=== PATIENT | female | born 1970 | race Two or more races ===

== ENCOUNTER 2016-11-18 11:50 | Emergency (ER) | payer SELFPAY ==
[~2016-11-18] VITALS: Ht 160 cm; Wt 81.6 kg
[~2016-11-18 11:50] MED LIST: AMLO5TAB2 PO; ASPI-252 PO; CLON0.5T3 PO; HYDR25TA9 PO; LISI-334 PO; LISI1TAB7 PO; LOVA20TA2 PO; METO50TA2 PO; NITR0.4T SL; PARO30TA3 PO; TRAZ100T12 PO; VORT10TA PO; WARF5TAB7 PO
[2016-11-18 12:57] LABS: BASO % 0 % (0-3); EOS % 3 % (0-3); HEMATOCRIT 40.8 % (36.0-47.0); HEMOGLOBIN 13.9 g/dL (12.0-15.5); LYMPH # 2.4 x10^3/uL (1.0-4.8); LYMPH % 27 % (24-48); MEAN CORPUSCULAR HEMOGLOBIN 29 pg (25-35); MEAN CORPUSCULAR HGB CONC 34 g/dL (31-37); MEAN CORPUSCULAR VOLUME 84 fL (79-100); MONO % 7 % (0-9); NEUT % 63 % (31-73); PLATELET COUNT 272 x10^3/uL (140-400); RED BLOOD COUNT 4.87 x10^6/uL (3.50-5.40); RED CELL DISTRIBUTION WIDTH 13.7 % (11.5-14.5); WHITE BLOOD COUNT 9.1 x10^3/uL (4.0-11.0)
[2016-11-18] MEDS ORDERED: MECLIZINE HCL 12.5 MG TABLET. PO ONE (13:00)
[2016-11-18] MEDS ORDERED: PROCHLORPERAZINE 10 MG/2 ML VIAL. IV ONE (13:00)
[2016-11-18 13:08] LABS: INR 3.7 (0.8-1.1); PROTHROMBIN TIME PATIENT 34.1 SEC (11.7-14.0)
[2016-11-18 13:15] LABS: CALCIUM 9.9 mg/dL (8.5-10.1); CREATININE 0.7 mg/dL (0.6-1.0); GFR 89.7; POTASSIUM 3.5 mmol/L (3.5-5.1)
[2016-11-18 13:21] LABS: ALBUMIN 3.7 g/dL (3.4-5.0); MAGNESIUM 1.9 mg/dL (1.8-2.4); TOTAL BILIRUBIN 0.4 mg/dL (0.2-1.0); TOTAL PROTEIN 7.5 g/dL (6.4-8.2)
[2016-11-18 13:36] LABS: BILIRUBIN,URINE NEGATIVE (NEG); GLUCOSE,URINE NEGATIVE (NEG); NITRITE,URINE NEGATIVE (NEG); PROTEIN,URINE NEGATIVE (NEG-TRACE); UROBILINOGEN,URINE 0.2 mg/dL (0.2 mg/dL)
[2016-11-18 13:41] LABS: BARBITURATES NEG (NEG); BENZODIAZEPINES NEG (NEG); CANNABINOIDS NEG (NEG); COCAINE NEG (NEG); METHADONE NEG (NEG); OPIATES NEG (NEG); PHENCYCLIDINE NEG (NEG)
[2016-11-18 13:44] LABS: BACTERIA,URINE FEW /HPF (0-FEW); RBC,URINE 0 /HPF (0-2); SQUAMOUS EPITHELIAL CELL,UR FEW /LPF; WBC,URINE 0 /HPF (0-4)
--- NOTE | 2016-11-18 13:44 | RAD ---
CT of the head without contrast, 11/18/2016: History: Headache, dizziness Comparison is made to a study from 03/16/2016. There is cerebral atrophy. There is moderate unchanged encephalomalacia in the lateral right frontal lobe compatible with an old infarct. A small old infarct is present in the right parietal lobe. There is an unchanged moderate-sized lucency in the medial aspect of the left occipital lobe compatible with an old infarct there. Is no evidence of acute intracranial hemorrhage or mass effect. There is compensatory enlargement of the occipital horn of left lateral ventricle due to the adjacent infarct. The ventricles are otherwise unremarkable. There is no shift of the midline structures. IMPRESSION: 1. 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 2. No acute intracranial abnormality is detected. PQRS Compliance Statement: One or more of the following individualized dose reduction techniques were utilized for this examination: 1. Automated exposure control 2. Adjustment of the mA and/or kV according to patient size 3. Use of iterative reconstruction technique
[2016-11-18] MEDS ORDERED: MECL25TA3 PO (14:02)
[2016-11-18 14:04] VITALS: BP 115/76
--- NOTE | 2016-11-18 14:04 | PHYS DOC ---
Past Medical History Past Medical History: Anxiety, Depression, High Cholesterol, Heart Disease, Hypertension, Hypothyroid, Stroke, Other Additional Past Medical Histor: heart valve replacement on chronic AC Past Surgical History: , Tubal ligation, Other Additional Past Surgical Histo: heart valve replacement Alcohol Use: Rarely Drug Use: None Adult General Chief Complaint Chief Complaint: WEAKNESS/GENERALIZED HPI HPI Patient is a 46 year old female who presents with son for evaluation of generalized weakness, dizziness, and gradual onset headache starting today. She had nausea yesterday, all day, no emesis; nausea is currently gone. States her symptoms were gradual in onset today, starting with headache this morning. Dizziness is intermittent, inappropriate movement feeling. She denies focal weakness, numbness, tingling, vision changes, neck pain or manipulation, chest pain, dyspnea, palpitations, fever or chills, diarrhea. Review of Systems Review of Systems Constitutional: Denies fever or chills [] Eyes: Denies change in visual acuity, redness, or eye pain [] HENT: Denies nasal congestion or sore throat [] Respiratory: Denies cough or shortness of breath [] Cardiovascular: No additional information not addressed in HPI [] GI: Denies abdominal pain, vomiting, bloody stools or diarrhea [] : Denies dysuria or hematuria [] Musculoskeletal: Denies back pain or joint pain [] Integument: Denies rash or skin lesions [] Neurologic: Denies focal weakness or sensory changes [] Endocrine: Denies polyuria or polydipsia [] Current Medications Current Medications Current Medications Medications (Trade) Dose Ordered Sig/Yonas Start Time Stop Time Status Last Admin Dose Admin Meclizine HCl (Antivert) 12.5 mg 1X ONCE 11/18/16 13:00 11/18/16 13:01 DC 11/18/16 13:10 12.5 MG Prochlorperazine Edisylate (Compazine) 10 mg 1X ONCE 11/18/16 13:00 11/18/16 13:01 DC 11/18/16 13:10 10 MG Allergies Allergies Allergies Coded Allergies Type Severity Reaction Last Updated Verified Penicillins Allergy Intermediate Unknown 03/16/16 Yes chicken derived Allergy Intermediate Unknown 03/16/16 Yes Physical Exam Physical Exam Constitutional: Well developed, well nourished, no acute distress, non-toxic appearance. [] HENT: Normocephalic, atraumatic, bilateral external ears normal, oropharynx moist, no oral exudates, nose normal. [] Eyes: PERRLA, EOMI, conjunctiva normal, no discharge. [] Neck: Normal range of motion, supple. [] Cardiovascular:Heart rate regular rhythm [] Lungs & Thorax: Bilateral breath sounds clear to auscultation [] Abdomen: Bowel sounds normal, soft, no tenderness. [] Skin: Warm, dry, no erythema, no rash. [] Back: No tenderness, no CVA tenderness. [] Extremities: No tenderness, ROM intact, equal generalized weakness. [] Neurologic: Alert and oriented X 3, normal motor function, normal sensory function, no focal deficits noted, cranial nerves II through XII intact, no nystagmus, no past pointing. [] Psychologic: Affect normal, judgement normal, mood normal. [] Current Patient Data Vital Signs Vital Signs Date Time Temp Pulse Resp B/P (MAP) Pulse Ox O2 Delivery O2 Flow Rate FiO2 11/18/16 12:05 98.8 77 18 124/79 (94) 96 Room Air 98.8 Lab Values Laboratory Tests Test 11/18/16 12:10 11/18/16 13:20 White Blood Count 9.1 x10^3/uL (4.0-11.0) Red Blood Count 4.87 x10^6/uL (3.50-5.40) Hemoglobin 13.9 g/dL (12.0-15.5) Hematocrit 40.8 % (36.0-47.0) Mean Corpuscular Volume 84 fL (79-100) Mean Corpuscular Hemoglobin 29 pg (25-35) Mean Corpuscular Hemoglobin Concent 34 g/dL (31-37) Red Cell Distribution Width 13.7 % (11.5-14.5) Platelet Count 272 x10^3/uL (140-400) Neutrophils (%) (Auto) 63 % (31-73) Lymphocytes (%) (Auto) 27 % (24-48) Monocytes (%) (Auto) 7 % (0-9) Eosinophils (%) (Auto) 3 % (0-3) Basophils (%) (Auto) 0 % (0-3) Neutrophils # (Auto) 5.8 x10^3uL (1.8-7.7) Lymphocytes # (Auto) 2.4 x10^3/uL (1.0-4.8) Monocytes # (Auto) 0.6 x10^3/uL (0.0-1.1) Eosinophils # (Auto) 0.3 x10^3/uL (0.0-0.7) Basophils # (Auto) 0.0 x10^3/uL (0.0-0.2) Prothrombin Time 34.1 SEC (11.7-14.0) H Prothrombin Time INR 3.7 (0.8-1.1) H Sodium Level 139 mmol/L (136-145) Potassium Level 3.5 mmol/L (3.5-5.1) Chloride Level 101 mmol/L (98-107) Carbon Dioxide Level 31 mmol/L (21-32) Anion Gap 7 (6-14) Blood Urea Nitrogen 23 mg/dL (7-20) H Creatinine 0.7 mg/dL (0.6-1.0) Estimated GFR (Cockcroft-Gault) 89.7 BUN/Creatinine Ratio 33 (6-20) H Glucose Level 107 mg/dL (70-99) H Calcium Level 9.9 mg/dL (8.5-10.1) Magnesium Level 1.9 mg/dL (1.8-2.4) Total Bilirubin 0.4 mg/dL (0.2-1.0) Aspartate Amino Transferase (AST) 25 U/L (15-37) Alanine Aminotransferase (ALT) 31 U/L (14-59) Alkaline Phosphatase 102 U/L (46-116) Creatine Kinase 164 U/L (26-192) Troponin I Quantitative < 0.017 ng/mL (0.000-0.055) Total Protein 7.5 g/dL (6.4-8.2) Albumin 3.7 g/dL (3.4-5.0) Albumin/Globulin Ratio 1.0 (1.0-1.7) Urine Collection Type Unknown Urine Color Yellow Urine Clarity Clear Urine pH 6.0 Urine Specific [place] 1.015 Urine Protein Negative mg/dL (NEG-TRACE) Urine Glucose (UA) Negative mg/dL (NEG) Urine Ketones (Stick) Negative mg/dL (NEG) Urine Blood Negative (NEG) Urine Nitrite Negative (NEG) Urine Bilirubin Negative (NEG) Urine Urobilinogen Dipstick 0.2 mg/dL (0.2 mg/dL) Urine Leukocyte Esterase Negative (NEG) Urine RBC 0 /HPF (0-2) Urine WBC 0 /HPF (0-4) Urine Squamous Epithelial Cells Few /LPF Urine Bacteria Few /HPF (0-FEW) Urine Opiates Screen Neg (NEG) Urine Methadone Screen Neg (NEG) Urine Barbiturates Neg (NEG) Urine Phencyclidine Screen Neg (NEG) Urine Amphetamine/Methamphetamine Neg (NEG) Urine Benzodiazepines Screen Neg (NEG) Urine Cocaine Screen Neg (NEG) Urine Cannabinoids Screen Neg (NEG) Urine Ethyl Alcohol Neg (NEG) Laboratory Tests 11/18/16 12:10 Laboratory Tests 11/18/16 12:10 EKG EKG EKG as interpreted by me as normal sinus rhythm, rate 75, no ST-T changes, P-R 168, QTc 497, no ectopy Radiology/Procedures Radiology/Procedures Head CT without contrast IMPRESSION: 1. 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 2. No acute intracranial abnormality is detected. DICTATED and SIGNED BY: CHIP ZAMUDIO MD DATE: 11/18/16 8127 Course & Med Decision Making Course & Med Decision Making Pertinent Labs and Imaging studies reviewed. (See chart for details) Workup is unremarkable other than INR at 3.7; which is slightly supratherapeutic. She is feeling much better after medication and like to go home. Will give prescription for meclizine for suspected peripheral vertigo. Return precautions given. She and son understand and agree with plan. Dragon Disclaimer Dragon Disclaimer This electronic medical record was generated, in whole or in part, using a voice recognition dictation system. Departure Departure Impression: Primary Impression: Headache Additional Impressions: Dizziness Generalized weakness Disposition: 01 HOME, SELF-CARE Condition: STABLE Referrals: NO PCP (PCP) Patient Instructions: Dizziness, [id number] Additional Instructions: Take meclizine as needed for dizziness. Take tylenol as needed for headache. Follow up with your primary care doctor. Return for any concerns. Scripts Meclizine Hcl (MECLIZINE HCL) 25 Mg Tablet 1 TAB PO PRN TID Y for DIZZINESS, #10 TAB Prov: Sy HERNANDEZ MD 11/18/16 Problem Qualifiers Primary Impression: Headache Headache type: unspecified Headache chronicity pattern: episodic headache Intractability: not intractable Qualified Codes: R51 - Headache Sy HERNANDEZ MD November 18, 2016 14:03
--- NOTE | 2016-11-18 15:32 | EKG ---
[facility] [address] [place] [address] Test Date: 2016-11-18 Test Time: 13:05:05 Pat Name: MAHOGANY ALLISON Department: Room: Gender: F Nursing Assistant: : [id number] Requested By: Sy HERNANDEZ Order Number: [id number] Reading MD: Raymond Winston Measurements Intervals [place] Rate: 75 P: 24 MN: 168 QRS: -37 QRSD: 112 T: 47 QT: 442 QTc: 497 Interpretive Statements SINUS RHYTHM ABNORMAL LEFT AXIS DEVIATION LEFT ANTERIOR FASCICULAR BLOCK PROLONGED QT Electronically Signed On 11-19-2016 9:09:32 CDT by Raymond Winston
== END 2016-11-18 14:12 | disposition home or self-care (01) ==
LOC: ER 11:50
DX: R42 Dizziness and giddiness (principal); R53.1 Weakness; R51 Headache; R11.0 Nausea; E78.00 Pure hypercholesterolemia, unspecified; I11.9 Hypertensive heart disease without heart failure; E03.9 Hypothyroidism, unspecified; F41.9 Anxiety disorder, unspecified; F32.9 Major depressive disorder, single episode, unspecified; Z86.73 Personal history of transient ischemic attack (TIA), and cerebral infarction without residual deficits; Z98.890 Other specified postprocedural states; Z98.51 Tubal ligation status; Z88.0 Allergy status to penicillin; Z91.018 Allergy to other foods
CPT/HCPCS: 36415; 70450; 80053; 80305; 81001; 82550; 83735; 84484; 84703; 85027; 85610; 93005; 96374; 99285; J0780; J8597; 81025; G0481